=== PATIENT | male | born 1965 | race African-American/Black ===

== ENCOUNTER 2018-04-15 06:06 | Inpatient (IN) | payer OTHER ==
[2018-04-15] MEDS ORDERED: BENZOIN TINCTURE SWABSTICK TP ONE (07:07)
[2018-04-15] MEDS ORDERED: HEPARIN NA (PORCINE) 5,000 UNITS/ML 1ML VIAL ONE (07:07)
[2018-04-15] MEDS ORDERED: THROMBIN (BOVINE) 5,000 UNIT VIAL TP ONE (07:07)
[2018-04-15] MEDS ORDERED: fentaNYL CITRATE 250 MCG/5 ML VIAL ONE (07:11)
[2018-04-15] MEDS ORDERED: PROPOFOL 20 ML ONE ×10 (07:12→09:58)
[2018-04-15] MEDS ORDERED: SUCCINYLCHOLINE CHLORIDE 200 MG/10 ML VIAL ONE (07:12)
[2018-04-15] MEDS ORDERED: MIDAZOLAM HCL 2 MG/2 ML SINGLE DOSE VIAL ONE ×2 (07:12→07:49)
[2018-04-15] MEDS ORDERED: ROCURONIUM BROMIDE 50 MG/5 ML VIAL ONE (07:12)
[2018-04-15] MEDS ORDERED: LIDOCAINE HCL/PF 2% SDV 5ML VIAL ONE (07:13)
[2018-04-15] MEDS ORDERED: ONDANSETRON 4 MG/2 ML VIAL ONE (07:13)
[2018-04-15] MEDS ORDERED: DEXAMETHASONE SOD PHOSPHATE 4 MG/1 ML VIAL ONE (07:13)
[2018-04-15] MEDS ORDERED: TRANEXAMIC ACID 1000 MG/10 ML VIAL ONE (07:13)
[2018-04-15] MEDS ORDERED: ceFAZolin SODIUM 1 GM VIAL ONE ×2 (07:13→10:59)
[2018-04-15] MEDS ORDERED: VANCOMYCIN 1,000 MG VIAL (RESTRICTED TO ID ONLY) ONE (07:13)
[2018-04-15] MEDS ORDERED: VANCOMYCIN 1,000 MG VIAL (RESTRICTED TO ID ONLY) IVPB ONE (07:45)
[2018-04-15] MEDS ORDERED: BUPIVACAINE HCL/PF 0.5% (5MG/ML) 10 ML VIAL ONE (07:54)
[2018-04-15] MEDS ORDERED: BUPIVACAINE LIPOSOME/PF (EXPAREL) 266 MG/20 ML VIAL ONE (07:54)
[2018-04-15] MEDS ORDERED: ceFAZolin SODIUM 1 GM VIAL IVPB ONE (08:40)
[2018-04-15] MEDS ORDERED: NEOSTIGMINE METHYLSULFATE 0.5 MG/1 ML - 10 ML MDV ONE (09:45)
[2018-04-15] MEDS ORDERED: GLYCOPYRROLATE 0.2 MG/1 ML VIAL ONE (09:45)
[2018-04-15] MEDS ORDERED: oxyCODONE HCL 5 MG TABLET PO PRN (11:56)
[2018-04-15] MEDS ORDERED: ONDANSETRON 4 MG/2 ML VIAL IVPUSH PRN ×2 (11:56→12:23)
[2018-04-15] MEDS ORDERED: ACETAMINOPHEN 1000 MG/100 ML VIAL (NON FORMULARY) IVPB PRN (12:23)
--- NOTE | 2018-04-15 12:27 | PN ---
Progress Note (short form) - Note Progress Note: 52M s/p removal of hardware L5-S1, inspection of fusion mass, revision laminectomy L5, laminotomy L4, neurolysis L4, L5, instrumentation L5-S1, revision arthrodesis L5-S1 POD #0. -Pain control: per anaesthesia team; recommend HEATING OPERATORS ENGINEER; No NSAID's. -NPO until flatus. -DVT PPx: - Mechanical only: LILIYA's, SCD's. -Incentive spirometry q15min. -PT/OT/Rehab, OOB. -WBAT B/L LE. -q4h B/L LE NV checks. -Post-op antibiotics x 2 doses. -f/u AM labs. -f/u drain output. -d/c Diaz catheter when patient ambulating comfortably. -Care per medical hospitalist team. -Discharge planning: f/u 7-10 days after discharge at [facility] [place] office; call for appointment; ; no bending, lifting more than 5lbs , or twisting x 6 months. -Will follow. Aldair Wells MD (Orthopaedic Surgery).
[2018-04-15] MEDS ORDERED: ACETAMINOPHEN 1000 MG/100 ML VIAL (NON FORMULARY) IVPB ONE (12:30)
[2018-04-15] MEDS ORDERED: LACTATED RINGERS SOLUTION 1,000 ML IV SCH (12:30)
--- NOTE | 2018-04-15 12:30 | OP ---
Operative Note - Note: Operative Date: 04/15/18 Pre-Operative Diagnosis: 1. L5-S1 spinal stenosis with neurogenic claudication. 2. 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 3. Pseudarthrosis L5-S1. 4. Segmental instability lumbar spine Operation: 1. Removal of hardware L5-S1. 2. Inspection fusion mass. 3. Revision L5 laminectomy. 4. L4 laminotomies. 5. L5 facetectomies. 6. Neurolysis left L4, L5. 7. L5-S1 posterior instrumentation. 8. L5-S1 posterolateral arthrodesis. 9. Bone autograft. 10. Bone allograft. 11. Complex wound closure. 12. Biplanar fluoroscopy. 13. Intra-operative neural monitoring Post-Operative Diagnosis: Same as Pre-op Surgeon: Aldair Wells Brick Tester: Sung Wells Anesthesiologist/SOLUTIONS SPECIALIST: Phil Bruno Anesthesia: General Specimens Removed: L5-S1 hardware Estimated Blood Loss (mls): 250 Drains & Tubes with Location: 1 x deep HemoVac Blood Volume Replaced (mls): 125 (Cell Saver) Fluid Volume Replaced (mls): 1,100 (Crystalloid) Operative Report Dictated: Yes
[2018-04-15] MEDS ORDERED: ACETAMINOPHEN INJECTION 100 ML IVPB ONE (12:32)
[2018-04-15] MEDS: ACETAMINOPHEN 325 MG TABLET (FP) PO SCH ×2 (17:05→17:54)
--- NOTE | 2018-04-15 17:28 | CONSULT ---
Consultation: REQUESTING PROVIDER: Dr. Wells CONSULT REQUEST: We have been asked to medically evaluate this patient for ICU admission, postoperative management HISTORY OF PRESENT ILLNESS: Patient is a 52 year old male with history of lower back pain, hypoglycemia s/p removal of hardware L5-S1, revision of laminectomy L5, laminotomy L4, neurolysis L4, L5, instrumentation L5-S1, revision arthrodesis L5-S1. Patient endorses that he does not take any home medications. Patient currently endorses minimal post-operative back pain. Denies subjective fevers, chills, headache, changes in vision, lightheadedness, dizziness, shortness of breath, cough, chest pain, palpitations, abdominal pain, nausea, vomiting. Patient has not yet passed flatus or bowel movement. REVIEW OF SYSTEMS: CONSTITUTIONAL: Absent: fever, chills, diaphoresis, generalized weakness, malaise, loss of appetite, weight change HEENT: Absent: rhinorrhea, nasal congestion, throat pain, throat swelling, difficulty swallowing, mouth swelling, ear pain, eye pain, visual changes CARDIOVASCULAR: Absent: chest pain, syncope, palpitations, irregular heart rate, lightheadedness , peripheral edema RESPIRATORY: Absent: cough, shortness of breath, dyspnea with exertion, orthopnea, wheezing, stridor, hemoptysis GASTROINTESTINAL: Absent: abdominal pain, abdominal distension, nausea, vomiting, diarrhea, constipation, melena, hematochezia GENITOURINARY: Absent: dysuria, frequency, urgency, hesitancy, hematuria, flank pain, genital pain MUSCULOSKELETAL: Admits: back pain. Absent: myalgia, arthralgia, joint swelling, neck pain SKIN: Absent: rash, itching, pallor HEMATOLOGIC/IMMUNOLOGIC: Absent: easy bleeding, easy bruising, lymphadenopathy, frequent infections ENDOCRINE: Absent: unexplained weight gain, unexplained weight loss, heat intolerance, cold intolerance NEUROLOGIC: Absent: headache, focal weakness or paresthesias, dizziness, unsteady gait, seizure, mental status changes, bladder or bowel incontinence PSYCHIATRIC: Absent: anxiety, depression, suicidal or homicidal ideation, hallucinations. PHYSICAL EXAMINATION Vital Signs - 24 hr 04/15/18 04/15/18 04/15/18 07:07 07:10 11:35 Temperature 97.7 F 97.5 F L Pulse Rate 66 82 Respiratory 18 16 Rate Blood Pressure 106/67 92/68 O2 Sat by Pulse 97 100 Oximetry (%) 04/15/18 04/15/18 04/15/18 11:45 12:00 12:15 Temperature Pulse Rate 78 73 68 Respiratory 17 19 20 Rate Blood Pressure 97/75 102/70 112/74 O2 Sat by Pulse 100 96 96 Oximetry (%) 04/15/18 04/15/18 04/15/18 12:30 12:45 13:00 Temperature Pulse Rate 58 L 55 L 57 L Respiratory 14 16 14 Rate Blood Pressure 92/60 92/59 L 97/61 O2 Sat by Pulse 96 100 100 Oximetry (%) 04/15/18 04/15/18 04/15/18 13:15 13:30 13:45 Temperature Pulse Rate 54 L 73 58 L Respiratory 18 18 18 Rate Blood Pressure 91/65 96/69 97/68 O2 Sat by Pulse 97 97 97 Oximetry (%) 04/15/18 04/15/18 04/15/18 14:00 14:15 14:30 Temperature Pulse Rate 56 L 61 60 Respiratory 17 18 18 Rate Blood Pressure 92/65 101/87 80/62 L O2 Sat by Pulse 95 95 96 Oximetry (%) 04/15/18 04/15/18 04/15/18 14:45 15:00 15:15 Temperature Pulse Rate 53 L 58 L 72 Respiratory 17 17 16 Rate Blood Pressure 98/55 L 83/49 L 101/63 O2 Sat by Pulse 96 96 95 Oximetry (%) 04/15/18 04/15/18 04/15/18 15:30 15:45 16:00 Temperature Pulse Rate 68 63 62 Respiratory 15 16 Rate Blood Pressure 98/46 L 95/53 L O2 Sat by Pulse 95 95 96 Oximetry (%) 04/15/18 04/15/18 04/15/18 16:15 16:45 17:00 Temperature 97.6 F 97.5 F L Pulse Rate 64 61 62 Respiratory 16 17 18 Rate Blood Pressure 94/73 95/52 L 95/68 O2 Sat by Pulse 96 Oximetry (%) 04/15/18 17:14 Temperature Pulse Rate Respiratory Rate Blood Pressure O2 Sat by Pulse 98 Oximetry (%) GENERAL: Patient is awake, alert, and fully oriented, in no acute distress. HEAD: Normocephalic, atraumatic. EYES: PERRLA, EOMI. Sclera anicteric, conjunctiva clear. EARS, NOSE, THROAT: Oropharynx clear without exudates. Dry mucous membranes. NECK: Normal range of motion, supple without lymphadenopathy, JVD, or masses. LUNGS: Breath sounds equal, clear to auscultation bilaterally. No wheezes, and no crackles. No accessory muscle use. HEART: Regular rate and rhythm, normal S1 and S2 without murmur, rub or gallop. ABDOMEN: Soft, not distended, nontender to light and deep palpation X4 quadrants. Normoactive bowel sounds X4 quadrants. MUSCULOSKELETAL: draw frame tender to light palpation. Freely moves all 4 extremities , limited by back pain. UPPER EXTREMITIES: 2+ radial pulses bilaterally. Warm, well-perfused. Cap refill <2 seconds. LOWER EXTREMITIES: 2+ dorsalis pedis pulses bilaterally, warm, well-perfused. No calf tenderness. No lower extremity edema bilaterally. NEUROLOGICAL: Cranial nerves II-XII intact. Normal speech. PSYCHIATRIC: Cooperative. Mood and affect appropriate upon my encounter. SKIN: Warm, dry. Spine surgical site bandaged clean, dry, with wound drain in place. Laboratory Results - last 24 hr 04/15/18 06:40 Blood Type A POSITIVE Antibody Screen Negative Active Medications Generic Name Dose Route Start Last Admin Trade Name Freq PRN Reason Stop Dose Admin Acetaminophen 650 mg 04/15/18 12:00 04/15/18 17:05 Tylenol - PO 04/18/18 11:59 Not Given Q6H ANSON Acetaminophen 1,000 mg 04/15/18 12:23 Ofirmev Injection - IVPB 04/16/18 12:22 PRN PRN If narcotics are ineffective Fentanyl 50 mcg 04/15/18 11:56 Sublimaze Injection - IVPUSH [id number] PRN PAIN-PACU ORDER X 4 DOSES ONLY Gabapentin 300 mg 04/15/18 22:00 Neurontin - PO BID ANSON Lactated Ringer's 1,000 mls @ 125 mls/hr 04/15/18 12:00 Lactated Ringers Solution IV ASDIR ANSON Cefazolin Sodium 1 gm/ 50 mls @ 100 mls/hr 04/15/18 18:00 Dextrose IVPB 04/16/18 02:29 Q8H-IV ANSON Ondansetron HCl 4 mg 04/15/18 11:56 Zofran Injection IVPUSH Q6H PRN NAUSEA AND/OR VOMITING Oxycodone HCl 5 mg 04/15/18 11:56 Roxicodone - PO Q3H PRN PAIN LEVEL 1-5 Oxycodone HCl 10 mg 04/15/18 11:56 Roxicodone - PO Q3H PRN PAIN LEVEL 6-10 Oxycodone HCl 10 mg 04/15/18 22:00 Oxycontin - PO 04/18/18 11:57 BID REPLACED BY [facility] ANSON ASSESSMENT/PLAN: Neurological -Patient is awake, alert, oriented. No acute distress -Neuro checks Q4 hours Pulmonary -Currently saturating 97% on room air. -Maintain oxygen saturation greater than 90% -Incentive spirometer Q15 minutes Cardiac -Patient is normotensive -Follow vital signs closely. Gastrointestinal -Patient is NPO until passing flatus -IV Lactated Ringer's at 125mL/ hour Genitourinary -Patient currently draining clear yellow urine within dietz catheter -Follow dietz catheter output -Discontinue dietz catheter once patient is ambulatory. Musculoskeletal -Patient is POD #0 s/p -Pain control with Acetaminophen 650mg PO Q6H -Oxycodone 10mg PO BID -Oxycodone 5mg PO Q3H PRN for pain 1-5 -Oxycodone 10mg PO Q3H PRN for pain 6-10 -Monitor wound drain output -Physical therapy Endocrine History of hypoglycemia -Monitor random blood glucose with daily BMP ID -Ancef 2 grams IV Q8H x2 doses post-operatively -Consider ID consult, pending culture results Fluids/ Electrolytes/ Nutrition -IV Lactated Ringer's at 125mL/ hour -Follow CMP, replete as necessary -NPO until patient is passing flatus Lines/ Tubes/ Drains -Wound drain placed intra-operatively 04/15 -Dietz catheter placed 04/15 Prophylaxis -No chemical anticoagulation per Dr. Wells. -SCDs, TEDs bilateral lower extremities Disposition: We will continue to follow the patient. Thank you for this consultative opportunity. Visit type - Emergency Visit Emergency Visit: Yes ED Registration Date: 04/15/18 Care time: The patient presented to the Emergency Department on the above date and was hospitalized for further evaluation of their emergent condition. - New Patient This patient is new to me today: Yes Date on this admission: 04/15/18 - Critical Care Critical Care patient: Yes Total Critical Care Time (in minutes): 37 Critical Care Statement: The care of this patient involved high complexity decision making to prevent further life threatening deterioration of the patient 's condition and/or to evaluate & treat vital organ system(s) failure or risk of failure.
[2018-04-15] MEDS: oxyCODONE HCL 5 MG TABLET PO PRN (17:59)
[2018-04-15] MEDS: LACTATED RINGERS SOLUTION 1,000 ML IV SCH (17:59)
[2018-04-15] MEDS ORDERED: CEFAZOLIN 1 GM in DEXTROSE 5%-WATER - 50 ML IVPB SCH (18:00)
[2018-04-15] MEDS: CEFAZOLIN 1 GM/D5W 1 GM/50 ML BAG IVPB SCH (18:00)
--- NOTE | 2018-04-15 20:00 | PN ---
Physical Exam: SUBJECTIVE: Patient seen and examined at bedside this morning. Patient is POD 0. He has no complaints, pain controlled with Fentanyl and oxycodone. Patient already able to tolerate PO without any nausea or vomiting. Patient is a 52 year old male with with history of Patient is a 52 year old male with history of lower back pain, hypoglycemia s/p removal of hardware L5-S1, revision of laminectomy L5, laminotomy L4, neurolysis L4, L5, instrumentation L5-S1, revision arthrodesis L5-S1. Patient endorses that he does not take any home medications. Patient currently endorses minimal post-operative back pain. Denies subjective fevers, chills, headache, changes in vision, lightheadedness, dizziness, shortness of breath, cough, chest pain, palpitations, abdominal pain, nausea, vomiting. Patient has not yet passed flatus or bowel movement. OBJECTIVE: Vital Signs Period Temp Pulse Resp BP Sys/Mendez Pulse Ox Last 24 Hr 97.5 F-97.8 F 53-82 14-20 80-117/46-87 95-100 GENERAL: The patient is awake, alert, and fully oriented, in no acute distress. HEAD: Normal with no signs of trauma. EYES: PERRL, extraocular movements intact, sclera anicteric, conjunctiva clear. No ptosis. ENT: Ears normal, nares patent, oropharynx clear without exudates, moist mucous membranes. NECK: Trachea midline, full range of motion, supple. LUNGS: Breath sounds equal, clear to auscultation bilaterally, no wheezes, no crackles, no accessory muscle use. HEART: Regular rate and rhythm, S1, S2 without murmur, rub or gallop. ABDOMEN: Soft, nontender, nondistended, normoactive bowel sounds, no guarding, no rebound, no hepatosplenomegaly, no masses. EXTREMITIES: 2+ pulses, warm, well-perfused, no edema. NEUROLOGICAL: Cranial nerves II through XII grossly intact. Normal speech, gait not observed. PSYCH: Normal mood, normal affect. SKIN: Warm, dry, normal turgor, no rashes or lesions noted Laboratory Results - last 24 hr 04/15/18 06:40 Blood Type A POSITIVE Antibody Screen Negative Active Medications Generic Name Dose Route Start Last Admin Trade Name Freq PRN Reason Stop Dose Admin Acetaminophen 650 mg 04/15/18 12:00 04/15/18 17:54 Tylenol - PO 04/18/18 11:59 650 mg Q6H ANSON Administration Acetaminophen 1,000 mg 04/15/18 12:23 Ofirmev Injection - IVPB 04/16/18 12:22 PRN PRN If narcotics are ineffective Fentanyl 50 mcg 04/15/18 11:56 Sublimaze Injection - IVPUSH [id number] PRN PAIN-PACU ORDER X 4 DOSES ONLY Gabapentin 300 mg 04/15/18 22:00 Neurontin - PO BID ANSON Lactated Ringer's 1,000 mls @ 125 mls/hr 04/15/18 12:00 04/15/18 17:59 Lactated Ringers Solution IV 125 mls/hr ASDIR ANSON Administration Cefazolin Sodium 1 gm in 50 mls @ 100 mls/hr 04/15/18 18:00 04/15/18 18:00 Ancef 1 Gm Premixed Ivpb - IVPB 04/16/18 02:29 Not Given Q8H-IV ANSON Ondansetron HCl 4 mg 04/15/18 11:56 Zofran Injection IVPUSH Q6H PRN NAUSEA AND/OR VOMITING Oxycodone HCl 5 mg 04/15/18 11:56 Roxicodone - PO Q3H PRN PAIN LEVEL 1-5 Oxycodone HCl 10 mg 04/15/18 11:56 04/15/18 17:59 Roxicodone - PO 10 mg Q3H PRN Administration PAIN LEVEL 6-10 Oxycodone HCl 10 mg 04/15/18 22:00 Oxycontin - PO 04/18/18 11:57 BID ANSON ASSESSMENT/PLAN:
[2018-04-15] MEDS: morphine SULFATE 4 MG/ML VIAL IVPUSH PRN (20:59)
--- NOTE | 2018-04-15 21:01 | OP ---
DATE OF OPERATION: DATE OF DICTATION: 04/15/2018 SURGEON: Aldair Wells MD SUPERVISOR POLISHING: Sung Wells MD PREOPERATIVE DIAGNOSIS: Pseudoarthrosis with spinal stenosis, left foramen and L4, L5, S1. POSTOPERATIVE DIAGNOSIS: Pseudoarthrosis with spinal stenosis, left foramen and L4, L5, S1. OPERATION PERFORMED: 1. Removal of hardware. 2. Inspection of fusion mass confirming pseudoarthrosis. 3. Revision laminectomy at partial L4 and partial L5 with undercutting facetectomy. 4. Neurolysis left L4 and L5 nerve root. 5. Revision instrumentation L5-S1 (Precision). 6. Posterolateral arthrodesis with autologous bone graft expanded with allograft bone. 7. Complex wound closure 25 cm. DESCRIPTION OF PROCEDURE: The patient was correctly identified and brought to the operating room. Lumbar spine was prepped and draped in the routine manner with Betadine scrub solution, wiped off with alcohol, DuraPrep applied. The patient was placed on a Vito table. All prominent bony points were appropriately padded. Eyes attended to as well as 10 degrees positioning for optic vein flow. Time-out was called. Imaging was available for intraoperative evaluation including CAT scan as well as MRI. After time-out was called, the old wound was opened. The dissection was taken to the tip of the spinous process of L4 and to the tip of the spinous process of S1. This gave the ability to appreciate the depth of the dissection. The dissection was taken down the spinous process to the lamina. At that point, after careful freeing of fibrous tissue off the actual edge of the lamina of L4 with a sharp, large curette, the curette was gently wiggled underneath the lamina and under the remaining lateral border of the vertebral canal to free the theca and fibro-osseous elements attached to the theca to enable easy access to the underlying space on towards the neural foramen on the left. At that point, the hardware was removed. The hardware was found to be completely loose. No complications with removing the hardware. The original screws were 40 x 6.5 screws. Once was removed the hardware and inspected the fusion mass and confirmed the pseudoarthrosis, the screws that were seated now measured to L5 of 7.5-cm x 35-mm screws and to S1 of 8.5-cm x 35-mm screws. Two 35-mm rods were applied to the tulips on the screwhead and tightened with the appropriate cap device. The final torque device was utilized to finally fix the entire construct, which was solidly fixed. The posterolateral arthrodesis was then completed by placing autologous mixed with allograft bone in the posterolateral arthrodesis site lateral to the rods. The decompression site at that revisited. A full neurolysis was performed on the L4-L5 nerve roots. They were freed completely exiting out into the foramen. The foramen was opened with undercutting of the bone beds that is on the posterior aspect of the foramen to remove all fibro-osseous material freeing the nerve roots completely. At that point, running motor evoked potentials as well as monitored of SSEPs revealed marked improvement in neural monitoring including that of the L3 nerve roots. These were depressed preoperatively and improved dramatically once the L4 neurolysis had been completed. The wounds were thoroughly lavaged. Closure was as follows: This was complex wound closure. Muscle 1 Vicryl, fascia 1 Vicryl, subcutaneous 1 and 2-0 Vicryl, skin sofya. Drainage Hemovac x1. Length of wound 25 cm. No complications. Operation tolerated well. MD IGOR [id number]
--- NOTE | 2018-04-15 21:14 | PN ---
Physical Exam: SUBJECTIVE: Patient was seen and examined in ICU. POD#0 status post L1, L2, L3, L4, L5, S1 laminectomies by Dr. Wells. He reports back pain and he is requesting pain medications. He denies chest pain, shortness of breath, dizziness or palpitations. OBJECTIVE: Vital Signs Period Temp Pulse Resp BP Sys/Mendez Pulse Ox Last 24 Hr 97.5 F-97.8 F 53-82 14-22 80-117/46-94 95-100 GENERAL: awake, alert, and fully oriented, in no acute distress HEAD: normal with no signs of trauma NECK: supple LUNGS: breath sounds equal, clear to auscultation bilaterally, no wheezes, no crackles, no accessory muscle use HEART: regular rate and rhythm, S1, S2 ABDOMEN: soft, nontender, nondistended. EXTREMITIES: 2+ pulses, warm, well-perfused, no edema. NEUROLOGICAL: normal speech, moving bilateral lower extremities with good sensation, no neuro focal deficits PSYCH: anxious SKIN: warm, dry, normal turgor, no rashes or lesions noted Laboratory Results - last 24 hr 04/15/18 06:40 Blood Type A POSITIVE Antibody Screen Negative Active Medications Generic Name Dose Route Start Last Admin Trade Name Freq PRN Reason Stop Dose Admin Acetaminophen 650 mg 04/15/18 12:00 04/15/18 17:54 Tylenol - PO 04/18/18 11:59 650 mg Q6H ANSON Administration Acetaminophen 1,000 mg 04/15/18 12:23 Ofirmev Injection - IVPB 04/16/18 12:22 PRN PRN If narcotics are ineffective Fentanyl 50 mcg 04/15/18 11:56 Sublimaze Injection - IVPUSH [id number] PRN PAIN-PACU ORDER X 4 DOSES ONLY Gabapentin 300 mg 04/15/18 22:00 Neurontin - PO BID ANSON Lactated Ringer's 1,000 mls @ 125 mls/hr 04/15/18 12:00 04/15/18 17:59 Lactated Ringers Solution IV 125 mls/hr ASDIR ANSON Administration Cefazolin Sodium 1 gm in 50 mls @ 100 mls/hr 04/15/18 18:00 04/15/18 18:00 Ancef 1 Gm Premixed Ivpb - IVPB 04/16/18 02:29 Not Given Q8H-IV ANSON Morphine Sulfate 4 mg 04/15/18 20:26 04/15/18 20:59 Morphine Sulfate IVPUSH 4 mg Q4H PRN Administration PAIN LEVEL 6-10 Ondansetron HCl 4 mg 04/15/18 11:56 Zofran Injection IVPUSH Q6H PRN NAUSEA AND/OR VOMITING Oxycodone HCl 5 mg 04/15/18 11:56 Roxicodone - PO Q3H PRN PAIN LEVEL 1-5 Oxycodone HCl 10 mg 04/15/18 11:56 04/15/18 17:59 Roxicodone - PO 10 mg Q3H PRN Administration PAIN LEVEL 6-10 Oxycodone HCl 10 mg 04/15/18 22:00 Oxycontin - PO 04/18/18 11:57 BID ANSON ASSESSMENT/PLAN: This is a 52 year old male with history of back pain and hypoglycemia. He is POD#0 status post L1, L2, L3, L4, L5, S1 laminectomies by Dr. Wells s/p Laminectomies L1, L2, L3, L4, L5, S1 He reports back pain. Continue with pain management with morphine IV 4 mg q4hr as needed for severe pain and oxycodone for moderate to severe pain and Tylenol for mild pain. Monitor blood pressure closely.He remains hemodynamically stable.No evidence of hypoxia or tachycardia. Neuro exam intact. Continue with neuro checks q4hr. Continue with cefazolin 1 gm every 8 hours for 24 hours postop. Monitor WBC and for signs of fever. DVT Prophylaxsis SCDs and TEDs to bilateral lower extremities. Visit type - Emergency Visit Emergency Visit: No - New Patient This patient is new to me today: Yes Date on this admission: 04/15/18 - Critical Care Critical Care patient: Yes Total Critical Care Time (in minutes): 25 - Discharge Referral Referred to [facility] No
[2018-04-15] MEDS: GABAPENTIN 300 MG CAPSULE (FP) PO SCH (21:43)
[2018-04-15] MEDS: oxyCODONE HCL 10 MG SUSTAINED ACTING TABLET PO SCH (21:43)
[2018-04-16] MEDS: ACETAMINOPHEN 325 MG TABLET (FP) PO SCH ×5 (00:50→23:42)
[2018-04-16] MEDS: LACTATED RINGERS SOLUTION 1,000 ML IV SCH (01:01)
[2018-04-16] MEDS: CEFAZOLIN 1 GM/D5W 1 GM/50 ML BAG IVPB SCH (01:01)
[2018-04-16] MEDS: morphine SULFATE 4 MG/ML VIAL IVPUSH PRN ×4 (01:02→20:54)
[2018-04-16 06:30] LABS: HEMOGLOBIN 12.6 GM/dL (11.7-16.9); MCH 32.8 pg (25.7-33.7); MCHC 34.9 g/dl (32.0-35.9); MEAN CELL VOLUME 94.1 fl (80-96); MEAN PLT VOLUME 8.9 fl (7.5-11.1); PLATELET COUNT 167 K/MM3 (134-434); RBC 3.82 M/mm3 (4.00-5.60); RDW 13.6 % (11.9-15.9); WHITE BLOOD COUNT 7.3 K/mm3 (4.0-10.0)
[2018-04-16 07:14] LABS: ANION GAP 3 MMOL/L (8-16); BLOOD UREA NITROGEN 13 mg/dL (7-18); CHLORIDE 105 mmol/L (98-107); CO2 31 mmol/L (21-32); CREATININE 0.9 mg/dL (0.55-1.3); GLUCOSE,RANDOM 107 mg/dL (74-106); MAGNESIUM 1.7 mg/dL (1.8-2.4); PHOSPHOROUS 3.6 mg/dL (2.5-4.9); POTASSIUM 4.6 mmol/L (3.5-5.1); SODIUM 139 mmol/L (136-145)
--- NOTE | 2018-04-16 07:48 | PN ---
Physical Exam: SUBJECTIVE: Patient seen and examined at bedside this morning. Patient endorses passing flatus overnight, without bowel movement. He admits that he ate chicken wings with chocolate cake yesterday evening brought in by his , and is refusing clear liquid diet; requesting regular diet. He denies subjective fevers , chills, shortness of breath, chest pain, palpitations, abdominal pain, nausea , vomiting. OBJECTIVE: Vital Signs Period Temp Pulse Resp BP Sys/Mendez Pulse Ox Last 24 Hr 97.5 F-98 F 53-82 14-22 80-120/46-94 95-100 GENERAL: Patient is awake, alert, and fully oriented, in no acute distress. HEAD: Normocephalic, atraumatic. EYES: PERRLA, EOMI. Sclera anicteric, conjunctiva clear. EARS, NOSE, THROAT: Oropharynx clear without exudates. Moist mucous membranes. NECK: Normal range of motion, supple without lymphadenopathy, JVD, or masses. LUNGS: Breath sounds equal, clear to auscultation bilaterally. No wheezes, and no crackles. No accessory muscle use. HEART: Regular rate and rhythm, normal S1 and S2 without murmur, rub or gallop. ABDOMEN: Soft, not distended, nontender to light and deep palpation X4 quadrants. Normoactive bowel sounds X4 quadrants. MUSCULOSKELETAL: splitter tender to light palpation. Freely moves all 4 extremities , limited by back pain. UPPER EXTREMITIES: 2+ radial pulses bilaterally. Warm, well-perfused. LOWER EXTREMITIES: 2+ dorsalis pedis pulses bilaterally, warm, well-perfused. No calf tenderness. No lower extremity edema bilaterally. NEUROLOGICAL: Cranial nerves II-XII intact. Normal speech. PSYCHIATRIC: Cooperative. Mood and affect appropriate upon my encounter. SKIN: Warm, dry. Spine surgical site bandaged clean, dry, with wound drain in place. Laboratory Results - last 24 hr 04/15/18 04/16/18 04/16/18 06:40 05:30 05:30 WBC 7.3 RBC 3.82 L Hgb 12.6 Hct 36.0 MCV 94.1 MCH 32.8 MCHC 34.9 RDW 13.6 Plt Count 167 MPV 8.9 Sodium 139 Potassium 4.6 Chloride 105 Carbon Dioxide 31 Anion Gap 3 L BUN 13 Creatinine 0.9 Creat Clearance w eGFR > 60 Random Glucose 107 H Calcium 8.0 L Phosphorus 3.6 Magnesium 1.7 L Blood Type A POSITIVE Antibody Screen Negative Active Medications Generic Name Dose Route Start Last Admin Trade Name Mark PRN Reason Stop Dose Admin Acetaminophen 650 mg 04/15/18 12:00 04/16/18 06:18 Tylenol - PO 04/18/18 11:59 650 mg Q6H [facility] Administration Acetaminophen 1,000 mg 04/15/18 12:23 Ofirmev Injection - IVPB 04/16/18 12:22 PRN PRN If narcotics are ineffective Docusate Sodium 200 mg 04/16/18 07:11 Colace Liquid - PO DAILY PRN CONSTIPATION Gabapentin 300 mg 04/15/18 22:00 04/15/18 21:43 Neurontin - PO 300 mg BID [facility] Administration Morphine Sulfate 4 mg 04/15/18 20:26 04/16/18 06:19 Morphine Sulfate IVPUSH 4 mg Q4H PRN Administration PAIN LEVEL 6-10 Ondansetron HCl 4 mg 04/15/18 11:56 Zofran Injection IVPUSH Q6H PRN NAUSEA AND/OR VOMITING Oxycodone HCl 5 mg 04/15/18 11:56 Roxicodone - PO Q3H PRN PAIN LEVEL 1-5 Oxycodone HCl 10 mg 04/15/18 11:56 04/15/18 17:59 Roxicodone - PO 10 mg Q3H PRN Administration PAIN LEVEL 6-10 Oxycodone HCl 10 mg 04/15/18 22:00 04/15/18 21:43 Oxycontin - PO 04/18/18 11:57 10 mg BID [facility] Administration ASSESSMENT/PLAN: Patient is a 52 year old male with history of lower back pain, hypoglycemia s/p removal of hardware L5-S1, revision of laminectomy L5, laminotomy L4, neurolysis L4, L5, instrumentation L5-S1, revision arthrodesis L5-S1. Neurological -Patient is awake, alert, oriented. No acute distress -Neuro checks Q4 hours Pulmonary -Currently saturating well on room air. -Maintain oxygen saturation greater than 90% -Incentive spirometer Q15 minutes Cardiac -Patient is normotensive -Follow vital signs closely. Gastrointestinal -Patient is passing flatus. -Diet advanced to regular diet. Genitourinary -Diaz catheter discontinued -Follow urinary output to ensure no urinary retention. Musculoskeletal -Patient is POD #1 s/p s/p removal of hardware L5-S1, revision of laminectomy L5, laminotomy L4, neurolysis L4, L5, instrumentation L5-S1, revision arthrodesis L5-S1. -Pain control with Acetaminophen 650mg PO Q6H -Oxycodone 10mg PO BID -Oxycodone 5mg PO Q3H PRN for pain 1-5 -Oxycodone 10mg PO Q3H PRN for pain 6-10 -Monitor wound drain output -Physical therapy evaluation Endocrine History of hypoglycemia -Monitor random blood glucose with daily BMP ID -Patient received Ancef 2 grams IV Q8H x2 doses post-operatively Fluids/ Electrolytes/ Nutrition -No IV fluids indicated. -Follow CMP, replete as necessary -Regular diet Lines/ Tubes/ Drains -Wound drain placed intra-operatively 04/15 -Diaz catheter placed 04/15 Prophylaxis -No chemical anticoagulation per Dr. Wells. -SCDs, TEDs bilateral lower extremities Disposition: -Continue care in ICU. Transfer to medical surgical floor per orthopedic surgery. Visit type - Emergency Visit Emergency Visit: Yes ED Registration Date: 04/15/18 Care time: The patient presented to the Emergency Department on the above date and was hospitalized for further evaluation of their emergent condition. - New Patient This patient is new to me today: No - Critical Care Critical Care patient: Yes Total Critical Care Time (in minutes): 37 Critical Care Statement: The care of this patient involved high complexity decision making to prevent further life threatening deterioration of the patient 's condition and/or to evaluate & treat vital organ system(s) failure or risk of failure. - Discharge Referral Referred to [facility] No
[2018-04-16 08:49] LABS: ALK PHOS 53 U/L (45-117); BILIRUBIN,TOTAL 0.4 mg/dL (0.2-1); SGOT/AST 27 U/L (15-37); SGPT/ALT 20 U/L (13-61); TOT PROT 5.6 g/dl (6.4-8.2)
[2018-04-16] MEDS: GABAPENTIN 300 MG CAPSULE (FP) PO SCH ×2 (09:12→21:03)
[2018-04-16] MEDS: oxyCODONE HCL 10 MG SUSTAINED ACTING TABLET PO SCH ×2 (09:13→21:04)
[2018-04-16] MEDS ORDERED: MAGNESIUM 1GM/D5W 100ML - 100 ML IVPB IVPB ONE (10:00)
--- NOTE | 2018-04-16 11:37 | PN ---
Teaching Attending Note Name of Resident: Richi Lundberg ATTENDING PHYSICIAN STATEMENT I saw and evaluated the patient. I reviewed the resident's note and discussed the case with the resident. I agree with the resident's findings and plan as documented. SUBJECTIVE: Patient seen and examined in the ICU. Awake and alert. Pain seems adequately controlled on MS and Oxycodone. No CP or SOB. NO acute events overnight. Intake & Output 04/13/18 04/14/18 04/15/18 04/16/18 23:59 23:59 23:59 23:59 Intake Total 1395 2150 Output Total 1470 825 Balance -75 1325 Weight 171 lb 1 oz Last Vital Signs Temp Pulse Resp BP Pulse Ox 98.2 F 74 17 122/74 95 04/16/18 10:00 04/16/18 10:00 04/16/18 10:00 04/16/18 10:00 04/16/18 09:00 Active Medications Acetaminophen (Tylenol -) 650 mg PO Q6H [facility] Stop: 04/18/18 11:59 Last Admin: 04/16/18 11:09 Dose: 650 mg Acetaminophen (Ofirmev Injection -) 1,000 mg IVPB PRN PRN PRN Reason: If narcotics are ineffective Stop: 04/16/18 12:22 Docusate Sodium (Colace Liquid -) 200 mg PO DAILY PRN PRN Reason: CONSTIPATION Gabapentin (Neurontin -) 300 mg PO BID [facility] Last Admin: 04/16/18 09:12 Dose: 300 mg Morphine Sulfate (Morphine Sulfate) 4 mg IVPUSH Q4H PRN PRN Reason: PAIN LEVEL 6-10 Last Admin: 04/16/18 11:15 Dose: 4 mg Ondansetron HCl (Zofran Injection) 4 mg IVPUSH Q6H PRN PRN Reason: NAUSEA AND/OR VOMITING Oxycodone HCl (Roxicodone -) 5 mg PO Q3H PRN PRN Reason: PAIN LEVEL 1-5 Oxycodone HCl (Roxicodone -) 10 mg PO Q3H PRN PRN Reason: PAIN LEVEL 6-10 Last Admin: 04/15/18 17:59 Dose: 10 mg Oxycodone HCl (Oxycontin -) 10 mg PO BID [facility] Stop: 04/18/18 11:57 Last Admin: 04/16/18 09:13 Dose: 10 mg GENERAL: Patient is awake, alert, and oriented, in no acute distress. HEAD: Normocephalic, atraumatic. EYES: PERRLA, EOMI. Sclera anicteric, conjunctiva clear. EARS, NOSE, THROAT: Oropharynx clear without exudates. Moist mucous membranes. NECK: Normal range of motion, supple without lymphadenopathy, JVD, or masses. LUNGS: Clear to auscultation bilaterally. No wheezes, and no crackles. No accessory muscle use. HEART: Regular rate and rhythm, normal S1 and S2 without murmur, rub or gallop. ABDOMEN: Soft, not distended, nontender to light and deep palpation X4 quadrants. Normoactive bowel sounds X4 quadrants. MUSCULOSKELETAL: jet dyeing machine tender to light palpation. Freely moves all 4 extremities , limited by back pain. UPPER EXTREMITIES: 2+ radial pulses bilaterally. Warm, well-perfused. LOWER EXTREMITIES: 2+ dorsalis pedis pulses bilaterally, warm, well-perfused. No calf tenderness. No lower extremity edema bilaterally. NEUROLOGICAL: Non-focal. PSYCHIATRIC: Cooperative. Mood and affect appropriate upon my encounter. SKIN: Warm, dry. Spine surgical site bandaged clean, dry, with wound drain in place. Laboratory Results - last 24 hr 04/16/18 04/16/18 05:30 05:30 WBC 7.3 RBC 3.82 L Hgb 12.6 Hct 36.0 MCV 94.1 MCH 32.8 MCHC 34.9 RDW 13.6 Plt Count 167 MPV 8.9 Sodium 139 Potassium 4.6 Chloride 105 Carbon Dioxide 31 Anion Gap 3 L BUN 13 Creatinine 0.9 Creat Clearance w eGFR > 60 Random Glucose 107 H Calcium 8.0 L Phosphorus 3.6 Magnesium 1.7 L Total Bilirubin 0.4 AST 27 ALT 20 Alkaline Phosphatase 53 Total Protein 5.6 L Albumin 3.0 L ASSESSMENT/PLAN: POD #1: Removal of hardware L5-S1, revision of laminectomy L5, laminotomy L4, neurolysis L4, L5, instrumentation L5-S1, revision arthrodesis L5-S1. Chronic LBP Pain control O2 as needed VTE prophylaxis Incentive Spirometry PT / ambulate PO as tolerated Dr Rogers
--- NOTE | 2018-04-16 15:21 | PN ---
Progress Note (short form) - Note Progress Note: Post op day#1.S/P Removal of L5-S1 hardware and L4-L5 revision laminectomy under ga uneventful.Patient stable and c/o lot of pain for which she is on medication.Noany anesthesia related problem.Patient Dc from the anesthesia care.
[2018-04-16 16:03] VITALS: BMI 26.7
[2018-04-16] MEDS: DOCUSATE NA 100 MG/10 ML UNIT-DOSE CUPS PO PRN ×2 (18:39→21:03)
--- NOTE | 2018-04-16 19:02 | PN ---
Progress Note, Physician History of Present Illness: 24HR EVENTS: -s/p removal of hardware L5-S1, inspection of fusion mass, revision laminectomy L5, laminotomy L4, neurolysis L4, L5, instrumentation L5-S1, revision arthrodesis L5-S -pt ambulating and tolerating a regular diet, passing flatus -pt would like to arrange home PT -Patient received Ancef 2 grams IV x2 doses -wound drain in situ -dietz d/han - Current Medication List Current Medications: Active Medications Acetaminophen (Tylenol -) 650 mg PO Q6H [facility] Stop: 04/18/18 11:59 Last Admin: 04/16/18 17:29 Dose: 650 mg Docusate Sodium (Colace Liquid -) 200 mg PO DAILY PRN PRN Reason: CONSTIPATION Last Admin: 04/16/18 18:39 Dose: 200 mg Gabapentin (Neurontin -) 300 mg PO BID [facility] Last Admin: 04/16/18 09:12 Dose: 300 mg Morphine Sulfate (Morphine Sulfate) 4 mg IVPUSH Q4H PRN PRN Reason: PAIN LEVEL 6-10 Last Admin: 04/16/18 11:15 Dose: 4 mg Ondansetron HCl (Zofran Injection) 4 mg IVPUSH Q6H PRN PRN Reason: NAUSEA AND/OR VOMITING Oxycodone HCl (Roxicodone -) 5 mg PO Q3H PRN PRN Reason: PAIN LEVEL 1-5 Last Admin: 04/16/18 17:29 Dose: 5 mg Oxycodone HCl (Roxicodone -) 10 mg PO Q3H PRN PRN Reason: PAIN LEVEL 6-10 Last Admin: 04/15/18 17:59 Dose: 10 mg Oxycodone HCl (Oxycontin -) 10 mg PO BID [facility] Stop: 04/18/18 11:57 Last Admin: 04/16/18 09:13 Dose: 10 mg - Objective Vital Signs: Vital Signs Temperature 98.2 F 04/16/18 10:00 Pulse Rate 74 04/16/18 18:00 Respiratory Rate 18 04/16/18 18:00 Blood Pressure 114/77 04/16/18 18:00 O2 Sat by Pulse Oximetry (%) 95 04/16/18 09:00 Constitutional: Yes: Well Nourished, No Distress, Calm Eyes: Yes: Conjunctiva Clear, PERRL HENT: Yes: Atraumatic, Normocephalic Neck: Yes: Supple, Trachea Midline Cardiovascular: Yes: Regular Rate and Rhythm Respiratory: Yes: Regular, CTA Bilaterally Gastrointestinal: Yes: Normal Bowel Sounds, Soft ...Rectal Exam: Yes: Deferred Musculoskeletal: Yes: Back Pain Extremities: Yes: WNL Edema: No Peripheral Pulses WNL: Yes Peripheral Pulses: Left Radial: 2+, Right Radial: 2+, Left Doralis Pedis: 2+, Right Dorsalis Pedis: 2+ Integumentary: Yes: WNL Wound/Incision: Yes: Clean/Dry, Dressing Dry and Intact Neurological: Yes: Alert, Oriented ...Motor Strength: WNL Psychiatric: Yes: Alert, Oriented Labs: CBC, BMP 04/16/18 05:30 04/16/18 05:30 Problem List - Problems (1) S/P laminectomy Assessment/Plan: pain control with PRN morphine, neurontin, tyelnol and oxycodone will arrange home PT with assistance of Code(s): Z98.890 - OTHER SPECIFIED POSTPROCEDURAL STATES (2) Status post hardware removal Assessment/Plan: VTE prophylaxis Incentive Spirometry PT / ambulate Code(s): Z98.890 - OTHER SPECIFIED POSTPROCEDURAL STATES Impression/Plan Impression/Plan: DISPO: -Full code -regular diet -transfer to step down floor Visit type - Emergency Visit Emergency Visit: No - New Patient This patient is new to me today: Yes Date on this admission: 04/16/18 - Critical Care Critical Care patient: Yes Total Critical Care Time (in minutes): 35 Critical Care Statement: The care of this patient involved high complexity decision making to prevent further life threatening deterioration of the patient 's condition and/or to evaluate & treat vital organ system(s) failure or risk of failure. - Discharge Referral Referred to [facility] No
--- NOTE | 2018-04-16 21:04 | PN ---
Progress Note (short form) - Note Progress Note: POD#2 Doing well original pain gone C/O incisional pain Wound dry Drain removed ambulating in the hallway PLAN D/C home See in the office in 10 days Pain mx
[2018-04-16] MEDS ORDERED: AMIODARONE IN DEXTROSE,ISO-OSM 360 MG/200 ML BAG ONE (23:17)
[2018-04-16] MEDS ORDERED: fentaNYL CITRATE 250 MCG/5 ML VIAL ONE (23:17)
[2018-04-17] MEDS: morphine SULFATE 4 MG/ML VIAL IVPUSH PRN ×2 (02:12→06:10)
[2018-04-17] MEDS: ACETAMINOPHEN 325 MG TABLET (FP) PO SCH (05:02)
[2018-04-17 06:09] VITALS: TEMP 98
--- NOTE | 2018-04-17 08:07 | DS ---
Physical Examination Vital Signs: Vital Signs Temperature 98 F 04/17/18 06:00 Pulse Rate 76 04/17/18 06:00 Respiratory Rate 18 04/17/18 06:00 Blood Pressure 118/91 04/17/18 06:00 O2 Sat by Pulse Oximetry (%) 95 04/16/18 22:00 Constitutional: Yes: Well Nourished, No Distress, Calm Eyes: Yes: Conjunctiva Clear, PERRL HENT: Yes: Atraumatic, Normocephalic Neck: Yes: Supple, Trachea Midline Cardiovascular: Yes: Regular Rate and Rhythm Respiratory: Yes: Regular, CTA Bilaterally Gastrointestinal: Yes: Normal Bowel Sounds, Soft ...Rectal Exam: Yes: Deferred Musculoskeletal: Yes: Back Pain Extremities: Yes: WNL Edema: No Peripheral Pulses WNL: Yes Peripheral Pulses: Left Radial: 2+, Right Radial: 2+ Integumentary: Yes: WNL Wound/Incision: Yes: Clean/Dry, Dressing Dry and Intact Neurological: Yes: Alert, Oriented ...Motor Strength: WNL Psychiatric: Yes: WNL, Alert, Oriented Labs: CBC, BMP 04/16/18 05:30 04/16/18 05:30 Discharge Summary Reason For Visit: RADICULOPATHY, LUMBAR REGION Current Active Problems S/P laminectomy (Acute) Status post hardware removal (Acute) Procedures: Principal: Operation: 1. Removal of hardware L5-S1. 2. Inspection fusion mass. 3. Revision L5 laminectomy. 4. L4 laminotomies. 5. L5 facetectomies. 6. Neurolysis left L4, L5. 7. L5-S1 posterior instrumentation. 8. L5-S1 posterolateral arthrodesis. 9. Bone autograft. 10. Bone allograft. 11. Complex wound closure. 12. Biplanar fluoroscopy. 13. Intra-operative neural monitoring Hospital Course: 52 year old M with chronic LBP s/p prior spinal surgeries presented for elective removal of hardware L5-S1, inspection of fusion mass, revision laminectomy L5, laminotomy L4, neurolysis L4, L5, instrumentation L5-S1, revision arthrodesis L5-S. Procedure was well tolerated and within 24hrs he was ambulating and tolerating a regular diet. -pt would like to arrange home PT( has contact information for company he used in the past). -Patient received Ancef 2 grams IV x2 doses -wound drain and dietz d/han by POD #2 Patient deemed stable for discharge home and will follow up with Dr. Wells in 10days. Condition: Good - Instructions Diet, Activity, Other Instructions: Activity Don't push, pull, bend, or twist for 2 week(s) after your surgery. Dont sit for more than 20 to 30 minutes at a time. And when you arent sitting , lie down or walk. Walk as much as you can. You can walk outside or inside. Going up and down stairs is also good for you, so do it as much as possible. Don t lift anything heavier than 10 pounds until your doctor says otherwise. Dont drive for 2 to 3 weeks after your surgery. And never drive if you are taking opioid pain medication. Let others drive you instead. And limit car trips to 20 to 30 minutes at a time. Have someone remove electrical cords, throw rugs, and anything else in your home that may cause you to fall. Arrange your household to keep the items you need handy. Home care Take your medicine exactly as directed by your doctor. Check your incision daily for redness, tenderness, or drainage. Dont soak in a bathtub, hot tub, or pool until your doctor says its OK. Wait 3 day(s) after your surgery to start showering. Then shower as needed. Carefully wash your incision with soap and water. Gently pat the incision dry. Dont rub it, or apply creams or lotions. Follow-up Make a follow-up appointment as directed by your doctor. Make an appointment to have sutures or sofya removed about 10-14days after surgery. Call 911 right away if you have any of the following: Chest pain Shortness of breath A severe headache Trouble controlling your bowels or bladder Calf pain, swelling, or redness Call your healthcare provider right away if you have any of the following: Increased pain, redness, or drainage from the incision Fever of 100.4F (38C) or higher, or as directed by your healthcare provider Shaking chills New pain, weakness, warmth, or numbness in your legs Foot, ankle, or calf swelling that is not relieved by elevating your feet Disposition: HOME - Home Medications Comprehensive Discharge Medication List: Ambulatory Orders Diazepam [Valium] 10 mg PO TID PRN 04/11/18 Oxycodone HCl 5 mg PO TID PRN 04/11/18 Naproxen Sodium [Aleve] 220 mg PO BID PRN 04/15/18 This patient is new to me today: No Emergency Visit: No Critical Care patient: Yes Total Critical Care Time (in minutes): 40 Critical Care Statement: The care of this patient involved high complexity decision making to prevent further life threatening deterioration of the patient 's condition and/or to evaluate & treat vital organ system(s) failure or risk of failure. - Discharge Referral Referred to [facility] No
--- NOTE | 2018-04-17 08:50 | PN ---
Physical Exam: SUBJECTIVE: Patient seen and examined at bedside this morning. Patient denies acute complaints, and endorses that his pain is well controlled. He is tolerating regular diet without abdominal pain, nausea, vomiting. He is passing flatus, and soft, brown bowel movement today without melena, or rhonda blood. Patient is walking around the unit with walker, and is asking regarding his discharge. OBJECTIVE: Vital Signs Period Temp Pulse Resp BP Sys/Mendez Pulse Ox Last 24 Hr 97.8 F-98.2 F 66-81 16-22 97-122/57-91 95-95 GENERAL: Patient is awake, alert, and fully oriented, in no acute distress. HEAD: Normocephalic, atraumatic. EYES: PERRLA, EOMI. Sclera anicteric, conjunctiva clear. EARS, NOSE, THROAT: Oropharynx clear without exudates. Moist mucous membranes. NECK: Normal range of motion, supple without lymphadenopathy, JVD, or masses. LUNGS: Breath sounds equal, clear to auscultation bilaterally. No wheezes, and no crackles. No accessory muscle use. HEART: Regular rate and rhythm, normal S1 and S2 without murmur, rub or gallop. ABDOMEN: Soft, not distended, nontender to light and deep palpation X4 quadrants. Normoactive bowel sounds X4 quadrants. MUSCULOSKELETAL: Strength 5/5 bilateral upper and lower extremities bilaterally. UPPER EXTREMITIES: 2+ radial pulses bilaterally. Warm, well-perfused. LOWER EXTREMITIES: 2+ dorsalis pedis pulses bilaterally, warm, well-perfused. No calf tenderness. No lower extremity edema bilaterally. NEUROLOGICAL: Cranial nerves II-XII intact. Normal speech. Ambulating well with rolling walker. PSYCHIATRIC: Cooperative. Mood and affect appropriate upon my encounter. SKIN: Warm, dry. Spine surgical site bandaged clean, dry. Wound drain removed by orthopedic surgeon. Active Medications Generic Name Dose Route Start Last Admin Trade Name Freq PRN Reason Stop Dose Admin Acetaminophen 650 mg 04/15/18 12:00 04/17/18 05:02 Tylenol - PO 04/18/18 11:59 650 mg Q6H [facility] Administration Docusate Sodium 200 mg 04/16/18 07:11 04/16/18 21:03 Colace Liquid - PO 200 mg DAILY PRN Administration CONSTIPATION Gabapentin 300 mg 04/15/18 22:00 04/16/18 21:03 Neurontin - PO 300 mg BID [facility] Administration Morphine Sulfate 4 mg 04/15/18 20:26 04/17/18 06:10 Morphine Sulfate IVPUSH 4 mg Q4H PRN Administration PAIN LEVEL 6-10 Ondansetron HCl 4 mg 04/15/18 11:56 Zofran Injection IVPUSH Q6H PRN NAUSEA AND/OR VOMITING Oxycodone HCl 5 mg 04/15/18 11:56 04/16/18 17:29 Roxicodone - PO 5 mg Q3H PRN Administration PAIN LEVEL 1-5 Oxycodone HCl 10 mg 04/15/18 11:56 04/15/18 17:59 Roxicodone - PO 10 mg Q3H PRN Administration PAIN LEVEL 6-10 Oxycodone HCl 10 mg 04/15/18 22:00 04/16/18 21:04 Oxycontin - PO 04/18/18 11:57 10 mg BID [facility] Administration ASSESSMENT/PLAN: Patient is a 52 year old male with history of lower back pain, hypoglycemia s/p removal of hardware L5-S1, revision of laminectomy L5, laminotomy L4, neurolysis L4, L5, instrumentation L5-S1, revision arthrodesis L5-S1. Neurological -Patient is awake, alert, oriented. No acute distress -Neuro checks Q4 hours Pulmonary -Currently saturating well on room air. -Maintain oxygen saturation greater than 90% -Incentive spirometer Q15 minutes Cardiac -Patient is normotensive -Follow vital signs closely. Gastrointestinal -Patient is passing flatus, and soft brown bowel movement today without melena , or rhonda blood. -Tolerating regular diet without abdominal pain, nausea or vomiting. Genitourinary -Diaz catheter discontinued -Patient urinating well without dysuria, hematuria. Musculoskeletal -Patient is POD #2 s/p s/p removal of hardware L5-S1, revision of laminectomy L5, laminotomy L4, neurolysis L4, L5, instrumentation L5-S1, revision arthrodesis L5-S1. -Pain control with Acetaminophen 650mg PO Q6H -Oxycodone 10mg PO BID -Oxycodone 5mg PO Q3H PRN for pain 1-5 -Oxycodone 10mg PO Q3H PRN for pain 6-10 -Wound drain removed by orthopedic surgeon -Physical therapy evaluation ID -Patient received Ancef 2 grams IV Q8H x2 doses post-operatively Fluids/ Electrolytes/ Nutrition -No IV fluids indicated. -Follow CMP, replete as necessary -Regular diet Prophylaxis -No chemical anticoagulation per Dr. Wells. -SCDs, TEDs bilateral lower extremities Disposition: -Patient is for discharge today, per Dr. Wells. Visit type - Emergency Visit Emergency Visit: Yes ED Registration Date: 04/15/18 Care time: The patient presented to the Emergency Department on the above date and was hospitalized for further evaluation of their emergent condition. - New Patient This patient is new to me today: No - Critical Care Critical Care patient: Yes Total Critical Care Time (in minutes): 35 Critical Care Statement: The care of this patient involved high complexity decision making to prevent further life threatening deterioration of the patient 's condition and/or to evaluate & treat vital organ system(s) failure or risk of failure. - Discharge Referral Referred to [facility] No
[2018-04-17 08:51] LABS: HEMOGLOBIN 13.6 GM/dL (11.7-16.9); MCH 33.1 pg (25.7-33.7); MCHC 34.9 g/dl (32.0-35.9); MEAN CELL VOLUME 94.8 fl (80-96); MEAN PLT VOLUME 8.8 fl (7.5-11.1); PLATELET COUNT 144 K/MM3 (134-434); RBC 4.11 M/mm3 (4.00-5.60); RDW 13.7 % (11.9-15.9); WHITE BLOOD COUNT 7.3 K/mm3 (4.0-10.0)
[2018-04-17 09:22] LABS: ANION GAP 7 MMOL/L (8-16); BLOOD UREA NITROGEN 11 mg/dL (7-18); CHLORIDE 103 mmol/L (98-107); CO2 28 mmol/L (21-32); GLUCOSE,RANDOM 116 mg/dL (74-106); MAGNESIUM 1.7 mg/dL (1.8-2.4); POTASSIUM 3.8 mmol/L (3.5-5.1); SODIUM 137 mmol/L (136-145)
[2018-04-17] MEDS: oxyCODONE HCL 10 MG SUSTAINED ACTING TABLET PO SCH (09:27)
[2018-04-17] MEDS: GABAPENTIN 300 MG CAPSULE (FP) PO SCH (09:27)
[2018-04-17 09:29] VITALS: BP 99/57; PULSE 78
--- NOTE | 2018-04-17 09:31 | PATH ---
Surgical Pathology Report Patient Name: OMAR HENNESSY [facility]. Rec. #: [id number] /Age/Gender: 1965 (Age: 52) / M Account: [id number] Location: [facility] INTERNET RESEARCHER Taken: 04/15/2018 Received: 04/15/2018 Reported: 04/17/2018 Physicians: Aldair Wells M.D. Specimen(s) Received REMOVED HARDWARE Clinical History L3-L5 lumbar fusion revision, lumbar radiculopathy Final Diagnosis REMOVED HARDWARE, L3-L5, LUMBAR FUSION REVISION: SURGICAL HARDWARE. MACROSCOPIC DIAGNOSIS. Electronically Signed Carolina Talley M.D. Gross Description Received fresh labeled "removed hardware," are 2 celaya metallic, bent rods averaging 3.5 cm in length. Also received within the same container are 8 metallic screws ranging from 0.4-5.5 cm in length. No soft tissue is present. No sections are submitted, gross only. 04/16/201804/16/2018
[2018-04-17] MEDS ORDERED: MAGNESIUM OXIDE 400 MG TABLET (FP) PO ONE (10:39)
[2018-04-17] MEDS: MAGNESIUM 1GM/D5W - 1 GM/100 ML IVPB IVPB SCH ×2 (10:44→11:44)
[2018-04-17] MEDS: oxyCODONE HCL 5 MG TABLET PO PRN (10:51)
== END 2018-04-17 11:24 | disposition home or self-care (01) | DRG 454 ==
LOC: JSAMEDAYSX 06:06 → JICU 17:25
PROVIDERS: ADMIT Orthopaedic Surgery Orthopaedic Surgery of the Spine; ATTEND Nurse Practitioner Family
PROC: 0SG30AJ Fusion of Lumbosacral Joint with Interbody Fusion Device, Posterior Approach, Anterior Column, Open Approach (ICD-10-PCS; 2018-04-15)
PROC: 0SG30K1 Fusion of Lumbosacral Joint with Nonautologous Tissue Substitute, Posterior Approach, Posterior Column, Open Approach (ICD-10-PCS; 2018-04-15)
PROC: 01NB0ZZ Release Lumbar Nerve, Open Approach (ICD-10-PCS; 2018-04-15)
PROC: 4A11X4G Monitoring of Peripheral Nervous Electrical Activity, Intraoperative, External Approach (ICD-10-PCS; 2018-04-15)
PROC: B01BZZZ Fluoroscopy of Spinal Cord (ICD-10-PCS; 2018-04-15)
PROC: 0SP304Z Removal of Internal Fixation Device from Lumbosacral Joint, Open Approach (ICD-10-PCS; principal; 2018-04-15 08:00)
DX: M48.062 Spinal stenosis, lumbar region with neurogenic claudication (principal); T84.038A Mechanical loosening of other internal prosthetic joint, initial encounter; M51.16 Intervertebral disc disorders with radiculopathy, lumbar region; M53.2X6 Spinal instabilities, lumbar region; Y83.8 Other surgical procedures as the cause of abnormal reaction of the patient, or of later complication, without mention of misadventure at the time of the procedure
CPT/HCPCS: 36415; 76000-TC-FY; 80048; 80053; 83735; 84100; 85027; 86850; 86891; 86900; 86901; 88300-TC; 94760; 97116-GP; 97161-GP; J0131; J1644